=== PATIENT | female | born 1935 | race Caucasian/White ===

== ENCOUNTER 2019-10-22 12:14 | Outpatient (RCR) | payer MEDICARE ==
[~2019-10-22 12:14] MED LIST: CILOSTAZOL; LIDOCAINE/PRILOCAINE 2.5-2.5% KIT ONE; MUPIROCIN 2% OINT 22 GM TUBE ONE; Z.0.AMLODIPINE BESYL; Z.0.CLONAZEPAM0.5 MG; Z.0.CRESTOR5 MG; Z.0.LORAZEPAM1 MG; Z.0.LYRICA50 MG; Z.0.TOPROL XL50 MG; [UNRECOGNIZED DRUG - OTHER]
[2019-10-22] MEDS ORDERED: MUPIROCIN 2% OINT 22 GM TUBE ONE (13:46)
[2019-10-22] MEDS ORDERED: LIDOCAINE/PRILOCAINE 2.5-2.5% KIT ONE (13:46)
== END 2019-10-23 ==
LOC: WCC 12:14
PROVIDERS: ATTEND Family Medicine
DX: I87.312 Chronic venous hypertension (idiopathic) with ulcer of left lower extremity (principal); I87.2 Venous insufficiency (chronic) (peripheral); R60.0 Localized edema
CPT/HCPCS: 87071; 87075; 87205

== ENCOUNTER 2019-11-19 11:05 | Outpatient (RCR) | payer MEDICARE ==
[2019-11-19] MEDS ORDERED: LIDOCAINE/PRILOCAINE 2.5-2.5% KIT ONE (13:42)
[2019-11-19] MEDS ORDERED: MUPIROCIN 2% OINT 22 GM TUBE ONE (13:42)
== END 2019-11-23 ==
LOC: WCC 11:05
PROVIDERS: ATTEND Family Medicine
DX: I87.312 Chronic venous hypertension (idiopathic) with ulcer of left lower extremity (principal); L97.821 Non-pressure chronic ulcer of other part of left lower leg limited to breakdown of skin; R60.0 Localized edema; I87.2 Venous insufficiency (chronic) (peripheral)

== ENCOUNTER 2019-12-17 10:05 | Outpatient (RCR) | payer MEDICARE ==
[~2019-12-17 10:05] MED LIST changes: -LIDOCAINE/PRILOCAINE 2.5-2.5% KIT ONE; -MUPIROCIN 2% OINT 22 GM TUBE ONE
[2019-12-17] MEDS ORDERED: MUPIROCIN 2% OINT 22 GM TUBE ONE (15:23)
[2019-12-17] MEDS ORDERED: LIDOCAINE/PRILOCAINE 2.5-2.5% KIT ONE (15:23)
== END 2019-12-23 ==
LOC: WCC 10:05
PROVIDERS: ATTEND Family Medicine
DX: I87.312 Chronic venous hypertension (idiopathic) with ulcer of left lower extremity (principal); L97.821 Non-pressure chronic ulcer of other part of left lower leg limited to breakdown of skin; I87.2 Venous insufficiency (chronic) (peripheral); R60.0 Localized edema
CPT/HCPCS: 87071; 87075; 87205